=== PATIENT | male | born 1990 | race African-American/Black ===

== ENCOUNTER 2021-05-18 10:03 | Emergency (ER) | payer MEDICAID ==
[~2021-05-18] VITALS: Ht 170.2 cm; Wt 61.2 kg
[2021-05-18 10:28] VITALS: BP 111/75
--- NOTE | 2021-05-18 10:29 | NUR ---
Patient eloped from facility. ER MD notified. Ambulatory with steady gait and sober.
== END 2021-05-18 10:29 | disposition home or self-care (01) ==
LOC: ER 10:05
DX: Z53.21 Procedure and treatment not carried out due to patient leaving prior to being seen by health care provider (principal); F32.9 Major depressive disorder, single episode, unspecified; F41.9 Anxiety disorder, unspecified; F20.9 Schizophrenia, unspecified

== ENCOUNTER 2022-12-26 22:49 | Emergency (ER) | payer MEDICAID ==
[~2022-12-26] VITALS: Ht 175.3 cm; Wt 68.0 kg
--- NOTE | 2022-12-26 23:23 | NUR ---
SOUND TESTER AT CHAIR-SIDE FOR BLOOD DRAW
[2022-12-26 23:54] LABS: BASOPHILS # (AUTO) 0.1 K/uL (0.0-0.2); BASOPHILS % (AUTO) 0.8 % (0.0-2.0); EOSINOPHILS % (AUTO) 1.5 % (0.0-6.0); HEMATOCRIT 45 % (39-51); HEMOGLOBIN 14.7 g/dL (13.5-17.5); LYMPHOCYTES # (AUTO) 3.1 K/uL (0.8-4.8); LYMPHOCYTES % (AUTO) 43.8 % (20.0-44.0); MEAN CORPUSCULAR HGB CONC 33 g/dl (31.0-36.0); MEAN CORPUSCULAR VOLUME 93 fL (80-96); MONOCYTES # (AUTO) 0.8 K/uL (0.1-1.30); MONOCYTES % (AUTO) 11.1 % (2.0-12.0); NEUTROPHILS % (AUTO) 42.8 % (43.0-81.0); PLATELET COUNT (AUTO) 248 K/uL (150-450); RED BLOOD CELL COUNT(AUTO) 4.86 MIL/uL (4.5-6.0)
[2022-12-27 00:14] LABS: BILIRUBIN,URINE 1+ (NEGATIVE); COLOR,URINE DARK YELLOW (YELLOW); LEUKOCYTE ESTERASE ,URINE NEGATIVE (NEGATIVE); NITRITE, URINE NEGATIVE (NEGATIVE); PROTEIN,URINE NEGATIVE (NEGATIVE); UGLUCOSE NEGATIVE (NEGATIVE); UROBILINOGEN,URINE 0.2 EU/dL (0.2)
[2022-12-27 00:19] LABS: BACTERIA,URINE Rare /HPF (None Seen); RBC,URINE 0-2 /HPF (0-2); SQUAMOUS EPITHELIAL CELL,UR Few /HPF (None Seen); WBC,URINE 0-2 /HPF (0-3)
[2022-12-27 00:50] LABS: CALCIUM, SERUM 9.7 mg/dL (8.5-10.1); CARBON DIOXIDE 27 mmol/L (21-32); CHLORIDE 99 mmol/L (98-107); CREATININE 1.3 mg/dL (0.6-1.3); GLUCOSE 99 mg/dL (74-106); POTASSIUM 3.3 mmol/L (3.5-5.1); SODIUM SERUM 137 mmol/L (136-145); UREA NITROGEN, BLOOD 15 mg/dL (7-18)
[2022-12-27 01:09] LABS: ALANINE AMINOTRANSFERASE 15 U/L (12-78); ALBUMIN 4.6 g/dL (3.4-5.0); ALKALINE PHOSPHATASE 67 U/L (46-116); ASPARTATE AMINOTRANSFERASE 31 U/L (15-37); BILIRUBIN,DIRECT 0.4 mg/dL (0.0-0.2); BILIRUBIN,TOTAL 2.6 mg/dL (0.2-1.0); TOTAL PROTEIN, SERUM 8.3 g/dL (6.4-8.2)
[2022-12-27 01:10] LABS: ALCOHOL, BLOOD < 3 mg/dL (0-0)
--- NOTE | 2022-12-27 01:50 | NUR ---
[facility]INIC[facility] FAXED TO [facility].
--- NOTE | 2022-12-27 09:32 | NUR ---
PT ACCEPTED TO [facility] UND[facility] OTT. PLEASE CALL [phone] FOR REPORT.
--- NOTE | 2022-12-27 09:49 | NUR ---
CALLED [facility] FOR TRANSPORT ETA [phone] PER CURTIS.
--- NOTE | 2022-12-27 09:56 | NUR ---
Ronnie beckham in [facility] - 12/27/22 at 0956 by LEONOR REPORT GIVEN TO VINCENT CHAIDEZ
--- NOTE | 2022-12-27 09:57 | NUR ---
REPORT GIVEN TO VINCENT CHAIDEZ
--- NOTE | 2022-12-27 10:28 | NUR ---
PATIENT REFUSED TRANSPORT TO [facility] MD MADE AWARE
--- NOTE | 2022-12-27 10:36 | NUR ---
Patient discharged to home in stable condition. Written and verbal after care instructions given. Patient verbalizes understanding of instruction.
[2022-12-27 10:37] VITALS: BP 142/79
== END 2022-12-27 10:37 | disposition home or self-care (01) ==
LOC: ER 22:50
DX: R45.851 Suicidal ideations (principal); F32.A Depression, unspecified; F41.9 Anxiety disorder, unspecified; F20.9 Schizophrenia, unspecified; Z20.822 Contact with and (suspected) exposure to COVID-19
CPT/HCPCS: 99285; 85025; 80048; 80076; 81001; 36415; 87426; 80143; 80320; 80307; C9803; G0480